=== PATIENT | male | born 1990 | race Caucasian/White ===

== ENCOUNTER 2017-08-06 16:01 | Emergency (ER) | payer SELFPAY ==
[2017-08-06] MEDS ORDERED: Norflex 60 MG/2 ML IM ONE (16:38)
[2017-08-06] MEDS ORDERED: TORAdol 30 mg Injection IM ONE (16:38)
--- NOTE | 2017-08-06 16:45 | ERPHSYRPT ---
- History of Present Illness Time Seen by Provider: 08/06/17 16:30 Exam Limitations: clinical condition Patient Subjective Stated Complaint: pt reports 2 days ago he was hauling rock in a wheelbarral when he slipped and had to plant his left foot-reports immediate sharp pain but then it got better so he kept working-states that pain has increased over time-reports that last night he got up-vomited and then passed out due to the pain-states that friend caught him and he did not fall or hit his head-states that pain increased with weight bearing or when he attempts to lift his leg Triage Nursing Assessment: pt pink warm and dry upon arrival to ed-assisted in transferring to er bed-able to bear weight for brief periods of time-no shortening or rotation noted-extremity pink warm and dry-resp easy and nonlabored Physician History: PATIENT STATES 2 DAYS AGO WHILE PUSHING A HEAVY WHEELBARREL UP A HILL, ALMOST OVER TURNED THE WHEELBARREL, AND HAD A SLIP AND NEAR FALL TWISTING HIS LOWER BACK AND LEFT HIP WHILE TRYING TO PREVENT WHEELBARREL FROM OVERTURNING. HAS CONSTANT LOW BACK PAIN WHICH RADIATES TO HIS LEFT HIP Timing/Duration: day(s) Method of Injury: near fall Quality: radiating, throbbing Back Pain Location: lumbar spine Back Pain Radiation: buttocks Severity of Pain-Max: severe Severity of Pain-Current: severe Modifying Factors: Improves With: movement Previous symptoms: no prior history Allergies/Adverse Reactions: No Known Drug Allergies Allergy (Verified 08/06/17 16:29) Hx Tetanus, Diphtheria Vaccination/Date Given: Yes Hx Influenza Vaccination/Date Given: No Hx Pneumococcal Vaccination/Date Given: No Immunizations Up to Date: Yes - Review of Systems Constitutional: No Fever, No Chills Eyes: No Symptoms Ears, Nose, & Throat: No Symptoms Respiratory: No Symptoms, No Cough, No Dyspnea Cardiac: No Symptoms, No Chest Pain, No Edema, No Syncope Abdominal/Gastrointestinal: No Abdominal Pain, No Nausea, No Vomiting, No Diarrhea Genitourinary Symptoms: No Dysuria Musculoskeletal: Injury, Joint Pain, No Back Pain, No Neck Pain Skin: No Rash Neurological: No Dizziness, No Focal Weakness, No Sensory Changes Psychological: No Symptoms Endocrine: No Symptoms All Other Systems: Reviewed and Negative - Past Medical History Pertinent Past Medical History: Yes Neurological History: No Pertinent History ENT History: No Pertinent History Respiratory History: Asthma Endocrine Medical History: No Pertinent History Musculoskeletal History: Fractures GI Medical History: No Pertinent History History: No Pertinent History Psycho-Social History: No Pertinent History Male Reproductive Disorders: No Pertinent History Other Medical History: nasal fracture, right shoulder fracture, collar bone fracture, childhood asthma - Past Surgical History Past Surgical History: Yes Neuro Surgical History: No Pertinent History Cardiac: No Pertinent History Respiratory: Other Gastrointestinal: No Pertinent History Genitourinary: No Pertinent History Musculoskeletal: No Pertinent History Male Surgical History: No Pertinent History Other Surgical History: T and A - Social History Smoking Status: Current every day smoker How long have you smoked: yrs Exposure to second hand smoke: Yes Drug Use: none Patient Lives Alone: No - Nursing Vital Signs Nursing Vital Signs: Initial Vital Signs Temperature 98.8 F 08/06/17 16:16 Pulse Rate 108 H 08/06/17 16:16 Respiratory Rate 18 08/06/17 16:16 Blood Pressure 146/96 08/06/17 16:16 O2 Sat by Pulse Oximetry 99 08/06/17 16:16 Pain Scale Pain Intensity 5 - Physical Exam General Appearance: no apparent distress, moderate distress, alert Eye Exam: PERRL/EOMI, eyes nml inspection Neck Exam: normal inspection, non-tender, supple, full range of motion, No meningismus, No midline tenderness Respiratory Exam: normal breath sounds, lungs clear, No respiratory distress Cardiovascular Exam: regular rate/rhythm, normal heart sounds Gastrointestinal Exam: soft, No tenderness, No mass Back Exam: vertebral tenderness, decreased range of motion, point tenderness ( MARKED LUMBAR SPINAL AND PARASPINAL TENDERNESS, MARKED LEFT SARCOILIAC TENDERNESS) Extremity Exam: normal inspection, limited range of motion (LEFT HIP, BILAT FEMORAL PULSES 2+), tenderness, other (TENDERNESS RIGHT SHOULDER, NO SWELLING OR CREPITUS, RIGHT RADIAL PULSE 2+), No calf tenderness, No pedal edema Peripheral Pulses: carotid (R): 2+, carotid (L): 2+, femoral (R): 2+, femoral (L ): 2+, dorsalis-pedis (R): 2+, dorsalis-pedis (L): 2+ Neurologic Exam: alert, oriented x 3, cooperative, chief informatics officer II-XII nml as tested, normal mood/affect, nml station & gait, sensation nml, No motor deficits Skin Exam: normal color, warm, dry, No rash SpO2 Interpretation: normal SpO2: 99 Oxygen Delivery: Room Air - Radiology Exams Right Shoulder X-ray Interpretation: Interpreted by me, Negative, No Fracture Left Hip X-ray Interpretation: Interpreted by me, Negative Pelvis X-ray Interpretation: Negative - CT Exams Lumbar Spine CT Interpretation: Tele-radiologist Report (NO ACUTE FINDINGS) Ordered Tests: Active Orders 24 hr Category Date Time Status Crutches STAT Care 08/06/17 18:06 Active HIP UNI (2V) INCL PEL IF DONE Stat Exams 08/06/17 16:33 Ordered LUMBAR SPINE W/O [CT] Stat Exams 08/06/17 16:30 Taken SHOULDER Stat Exams 08/06/17 17:27 Ordered UA W/RFX UR CULTURE Stat Lab 08/06/17 16:50 Completed Urine Triage Profile Stat Lab 08/06/17 16:50 Completed Medication Summary Discontinued Medications Generic Name Dose Route Start Last Admin Trade Name Freq PRN Reason Stop Dose Admin Ketorolac Tromethamine 60 mg 08/06/17 16:38 08/06/17 17:43 Toradol 30 Mg Injection IM 08/06/17 16:39 60 mg STAT ONE Administration Ketorolac Tromethamine Confirm 08/06/17 16:49 Toradol 30 Mg Injection Administered 08/06/17 16:50 Dose 60 mg .ROUTE .STK-MED ONE Orphenadrine Citrate 60 mg 08/06/17 16:38 08/06/17 17:42 Norflex 60 Mg/2 Ml IM 08/06/17 16:39 60 mg STAT ONE Administration Orphenadrine Citrate Confirm 08/06/17 16:49 Norflex 60 Mg/2 Ml Administered 08/06/17 16:50 Dose 60 mg .ROUTE .STK-MED ONE Lab/Rad Data: Laboratory Results 08/06/17 08/06/17 Range/Units 16:50 16:50 Ur Collection Type CLEAN CATCH Urine Color YELLOW (YELLOW) Urine Appearance CLEAR (CLEAR) Urine pH 8.0 (5-6) Ur Specific [place] 1.005 (1.005-1.025) Urine Protein NEGATIVE (Negative) Urine Ketones NEGATIVE (NEGATIVE) Urine Blood NEGATIVE (0-5) Guillermo/ul Urine Nitrite NEGATIVE (NEGATIVE) Urine Bilirubin NEGATIVE (NEGATIVE) Urine Urobilinogen NORMAL (0-1) mg/dL Ur Leukocyte Esterase NEGATIVE (NEGATIVE) Urine Culture Reflexed NO (NO) Urine Glucose NEGATIVE (NEGATIVE) mg/dL Urine Opiates Level NEGATIVE (NEGATIVE) Ur Methadone NEGATIVE (NEGATIVE) Urine Barbiturates NEGATIVE (NEGATIVE) Ur Phencyclidine (PCP) NEGATIVE (NEGATIVE) Urine Amphetamine POSITIVE (NEGATIVE) U Benzodiazepine Level POSITIVE (NEGATIVE) Urine Cocaine NEGATIVE (NEGATIVE) Urine Marijuana (THC) POSITIVE (NEGATIVE) Specimen Received 08/06/17 1650 - Progress Progress Note: 08/06/17 16:48 ADMINISTERED TORADOL 60MG IM, NORFLEX 60MG IM. FITTED FOR CRUTCHES, POSITIVE URINE DRUG SCREEN-AMPHETAMINES, THC-BENZO 08/06/17 18:08 08/06/17 18:46 Counseled pt/family regarding: lab results, diagnosis, need for follow-up, rad results - Departure Time of Disposition: 18:56 Departure Disposition: Home Clinical Impression: ACUTE LOW BACK STRAIN, MIXED SUBSTANCE ABUSE Condition: Stable Critical Care Time: No Referrals: GERMAIN ROMERO [Primary Care Provider] - Additional Instructions: FOLLOWUP WITH PRIMARY CARE PROVIDER THIS WEEK FOR EXAM AND REFERRAL TO PHYSICAL THERAPY. TORADOL 10MG EVERY 6 HOURS FOR PAIN. NORFLEX 100MG TWICE FOR MUSCLE SPASMS. Prescriptions: Ketorolac Tromethamine [Toradol] 10 mg PO Q6HPRN PRN #20 tablet PRN Reason: Pain Orphenadrine Citrate 100 mg [Norflex 100 MG Tablet] 100 mg PO BID #10 tab
[2017-08-06] MEDS ORDERED: Norflex 60 MG/2 ML ONE (16:49)
[2017-08-06] MEDS ORDERED: TORAdol 30 mg Injection ONE (16:49)
[2017-08-06 17:10] LABS: Appearance CLEAR (CLEAR)
[2017-08-06 17:11] LABS: Bilirubin NEGATIVE (NEGATIVE); Blood NEGATIVE Ery/ul (0-5); Glucose NEGATIVE (NEGATIVE); Ketones NEGATIVE (NEGATIVE); Leukocyte Esterase NEGATIVE (NEGATIVE); Nitrite NEGATIVE (NEGATIVE); Protein,Urine Dip NEGATIVE (Negative); Specific Gravity 1.005 (1.005-1.025); Urobilinogen NORMAL mg/dL (0-1)
[2017-08-06 17:13] LABS: Amphetamine,Urine POSITIVE (NEGATIVE); Barbiturate,Urine NEGATIVE (NEGATIVE); Benzodiazepine,Urine POSITIVE (NEGATIVE); Cocaine,Urine NEGATIVE (NEGATIVE); Methadone,Urine NEGATIVE (NEGATIVE); Opiate,Urine NEGATIVE (NEGATIVE); PCP,Urine NEGATIVE (NEGATIVE); THC,Urine POSITIVE (NEGATIVE)
[2017-08-06 18:54] VITALS: O2SAT 99
[2017-08-06 19:14] VITALS: BP 132/86; PULSE 74
--- NOTE | 2017-08-07 08:50 | XRAY ---
Exam: Two-view left hip series. Comparison: None. Indication: 26-year-old male with injury pushing a wheelbarrow 2 days ago. Technique: AP and frog-leg lateral views of the left hip were obtained. In addition, there is an AP image of a portion of the central aspect of the pelvis. Findings: The sacroiliac joints and hip joint spaces appear grossly symmetric. No acute fracture or dislocation is seen. No abnormal periarticular soft tissue calcifications are seen. There is a small bone island within the medial aspect of the left femoral neck as an incidental note. There is a very small oval-shaped soft tissue calcification lateral to the lower portion of the greater trochanter on the AP film. This is noted anteriorly on the lateral radiograph. This likely represents a small calcified phlebolith. Impression: 1. No acute fracture or dislocation of the left hip is seen.
--- NOTE | 2017-08-07 08:51 | XRAY ---
Exam: CT of the lumbar spine without IV contrast from 08/06/2017. CTDI: 95.56 Comparison: None. Indication: 26-year-old male with history of injury pushing a wheelbarrow 2 days ago. No history of surgery. Technique: Straight axial helical images were obtained throughout the lumbar spine. Reconstructed coronal and sagittal images were created and reviewed. In addition, thin section angled axial images were obtained through all 5 lumbar interspaces, parallel to each lumbar interspace from mid vertebral body level to mid vertebral body level. Findings: The vertebra are in normal alignment. No acute lumbar spine fracture, traumatic spondylolisthesis, or spondylolysis is seen. There is incidental note of a small subchondral cyst on the iliac side of the right sacroiliac joint. See straight axial image #82. Otherwise, sacroiliac joints appear unremarkable. No other lumbar spine bone abnormality is seen. Throughout the lumbar spine, I see no evidence of focal disc herniation, central canal spinal stenosis, or neural foraminal narrowing. The surrounding soft tissues appear unremarkable. Impression: 1. No acute findings are seen within the lumbar spine. 2. Incidental note of a small subchondral cyst on the iliac side of the right sacroiliac joint.
--- NOTE | 2017-08-07 08:54 | XRAY ---
Exam: 3 view right shoulder series from 08/06/2017. Comparison: None. Indication: History of injury pushing a wheelbarrow 2 days ago. The patient gives a history of a past fracture through the right clavicle. Technique: AP internal rotation, AP external rotation, and Y views of the right shoulder were obtained. Findings: I note deformity of the right clavicle centered just lateral to the midpoint consistent with an old healed fracture. However, I see no acute fracture or dislocation of the right shoulder. The right acromioclavicular joint appears intact. The visualized glenohumeral joint space is not seen in optimal profile, but reveals no gross abnormality. I believe there is a small bone island within the anterior lateral aspect of the right scapula. The visualized right lung appears clear. Impression: 1. No acute fracture or dislocation of the right shoulder is seen. 2. Old healed fracture deformity of the right clavicle centered just lateral to the midpoint. This is consistent with patient's given history.
== END 2017-08-06 19:13 | disposition home or self-care (01) ==
LOC: ED 16:01
DX: M54.5 Low back pain (principal); M25.511 Pain in right shoulder; M25.552 Pain in left hip; X50.1XXA Overexertion from prolonged static or awkward postures, initial encounter; Y93.89 Activity, other specified; F15.10 Other stimulant abuse, uncomplicated; F13.10 Sedative, hypnotic or anxiolytic abuse, uncomplicated; F12.10 Cannabis abuse, uncomplicated
CPT/HCPCS: 72131; 73030; 73502; 80307; 81002; 96372; 99284; J1885; J2360